=== PATIENT | male | born 1975 | race Caucasian/White ===

== ENCOUNTER 2022-01-29 07:50 | Emergency (ER) | payer OTHER, SELFPAY ==
[2022-01-29 08:14] VITALS: BP 126/79; PULSE 64; RESP 16; TEMP 36.4; O2SAT 98; BMI 27.6
[2022-01-29] MEDS: Tetracaine HCl/PF 0.5% Oph Sol 4 ML DROPS 1 DROP EYE-RIGHT (09:32)
[2022-01-29] MEDS: Erythromycin Base 0.5% Oph Oin 1 GM TUBE 1 CM EYE-RIGHT (09:32)
[2022-01-29] MEDS: Fluorescein Sodium STRIP 1 STRIP EYE-RIGHT (09:32)
--- NOTE | 2022-01-29 09:39 | ED_ITS ---
HPI - Eye Problem General Chief complaint: Eye Problems Stated complaint: Eye pain Time Seen by Provider: 01/29/22 09:07 Source: patient Mode of arrival: ambulatory Limitations: no limitations History of Present Illness HPI Narrative: 47-YEAR-OLD MALE previously healthy here with reports of right eye irritation and light sensitivity since Saturday evening. Patient tells me that he was working on a car on Saturday. He was working with a tool grinding damon brakes and felt something hit his eye. He did not have eye protection on. Since then patient has had some irritation and light sensitivity the right eye. He denies any vision changes, eye pain, discharge. Patient does not use any contacts or glasses. Related Data Previous Rx's Medication Instructions Recorded erythromycin 5 mg/gram (0.5 %) eye 0.5 inch OPHTHALMIC (EYE) BID 7 01/29/22 ointment Days #3.5 g Allergies Allergy/AdvReac Type Severity Reaction Status Date / Time codeine [CODEINE] Allergy Unknown UNKNOWN Verified 01/29/22 08:13 Review of Systems Review of Systems: Yes all other systems are reviewed and are negative Constitutional: Constitutional: Reports no additional constitutional complaints, Denies body ache(s), Denies chills, Denies fever(s), Denies headache(s) and Denies weakness Eyes: Eyes: Reports no additional eye complaints, Denies change in vision, Denies eye discharge, Reports irritation, Denies eye pain and Reports photophobia ENT: Reports system reviewed and no additional complaints, except as docum ented, Denies dizziness, Denies headache(s), Denies nasal congestion, Denies nasal discharge and Denies neck pain Cardiovascular: Cardiovascular: Reports no additional cardiovascular complaints, Denies chest pain, Denies leg edema and Denies dyspnea Respiratory: Respiratory: Reports no additional respiratory complaints, Denies cough and Denies dyspnea Gastrointestinal: Gastrointestinal: Reports no additional gastrointestinal complaints, Denies abdominal pain, Denies diarrhea, Denies nausea and Denies vomiting Genitourinary: Genitourinary: Denies urinary incontinence Musculoskeletal: Musculoskeletal: Reports no additional musculoskeletal complaints, Denies back pain, Denies arthralgias, Denies joint swelling, Denies neck pain, Denies numbness and Denies tingling Integumentary/Breasts: Skin/Breast: Reports system reviewed and no additional complaints, except as docu and Denies rash Neurologic: Reports system reviewed and no additional complaints, except as documented, Denies Abnormal speech present, Denies dizziness, Denies headache (s), Denies numbness, Denies tingling and Denies weakness PMFSH Past Medical History Attestation statement: The following information was validated with the patient. Source: old records reviewed and nursing notes reviewed Medical History No known health problems Social History Social History Advance Directives: No Advance Directives Information Provided: No Physical Exam Vital Signs: Vital Signs: Last Vital Signs Temp 97.6 F 01/29/22 08:14 Pulse 64 01/29/22 08:14 Resp 16 01/29/22 08:14 BP 126/79 01/29/22 08:14 Pulse Ox 98 01/29/22 08:14 BMI result Body Mass Index 27.6 Const: General: cooperative, healthy appearing, comfortable and no acute distress Orientation/consciousness: patient oriented x3 Limitations: no limitations HEENT: Head: Yes normal to inspection Ears: hearing grossly normal bilaterally General nose exam: Normal external nose present Face and sinus: Yes normal facial exam Mouth: Normal oral and palatal mucosa present Throat: Yes posterior oropharynx normal Eyes: General: appearance normal, both eyes and all related structures Visual Betts: normal visual betts by confrontation Alignment and Position: alignment normal Periorbital: periorbital findings normal Eyelids: Yes eyelids normal Conjunctivae: conjunctival abnormal (r conjunctiva erythema/irritation ) Sclerae: sclerae normal Corneas: corneas abnormal on the right fluorescein used, abrasion and foreign body metallic, with rust ring present and at clock position (2 o clock) and fluorescein used Pupils: Equal, round and reactive pupils present EOM: EOMs intact bilaterally Direct Ophthalmoscopy: normal light reflex and photophobia Neck: Neck: Yes normal visual inspection Chest: Chest palpation & inspection: normal inspection of the chest Resp: Effort & Inspection: normal respiratory effort Auscultation: clear to auscultation bilaterally Cardio: Rate: regular rate Rhythm: regular rhythm Peripheral pulses: Peripheral pulses 2+ throughout GI: Inspection: Yes normal to inspection Palpation (GI): Soft to palpation and nontender Auscultation: normal bowel sounds Back/Spine/Pelvis: Thoracic/Lumbar Spine: thoracic and lumbar spine normal to inspection Skin: General skin exam: no rashes or lesions noted Neuro: General: patient oriented x3, no focal motor deficits and normal sensation to monofilament Cranial nerves: Yes Equal, round and reactive pupils present Cognition (Neuro): normal cognition Speech: No Abnormal speech present Gait exam (Neuro): Normal gait present Motor exam (neuro): 5/5 motor strength present throughout Extrem: General: Yes normal to inspection Course Course Course Narrative: 47 yo male here with right eye irritation/photophobia since grinding damon brakes Saturday night w/o eye protection. Last tetanus unknown. Eye exam shows FB at 2 o clock position with rust ring. See procedure note for removal. There is residual rust ring. Tetanus will be updated. Erythromycin for home. Refer to opthmo for rust ring. Reviewed worrisome signs/symptoms with patient and when to seek additional care. Comfortable with discharge home. MDM - Eye Problem Differential Diagnosis Differential diagnosis: Likely corneal abrasion Medical Records Attestation: I reviewed the patient's medical records. Lab Data Attestation: I reviewed the patient's lab results. Procedures FB Removal Eye Location: eye (R) Topical anesthetic used: tetracaine Foreign body: metal Technique: cotton tip swab and needle Procedure performed under: direct visualization with magnification Post-procedure medication: ophthalmic antibiotic and topical anesthetic Patient tolerated procedure: well Complications: residual rust ring Discharge Plan Discharge Clinical Impression: Corneal abrasion, Acute foreign body of right cornea Patient Disposition: Home, Self-Care Instructions: Corneal Abrasion (DC), Eye Foreign Body (ED) Additional Instructions: USE THE OINTMENT PRESCRIBED COOL COMPRESSES NEEDED MOTRIN OR TYLENOL FOR PAIN FOLLOW-UP WITH THE EYE DOCTOR. HIS OFFICE OPENS AT 730AM TOMORROW Prescriptions: New erythromycin 5 mg/gram (0.5 %) ointment 0.5 inch ophthalmic (eye) BID 7 Days Qty: 3.5 0RF Referrals: Rafat Maya [Physician] - 5 days Stand Alone Forms: Work/School Release Interventions: ED Discharge Assessment Last Done: 01/29/22 10:09 Discharge Date/Time: 01/29/22 10:09 Print Language: Tongan
[2022-01-29] MEDS: Diphth,Pertus(ACell),Tet Adult 0.5 ML SYRINGE IM (10:04)
== END 2022-01-29 10:09 | disposition home or self-care (01) ==
LOC: HO.ED 09:44
PROVIDERS: Emergency Provider Emergency Medicine Emergency Medical Services; PCP Internal Medicine
DX: S05.01XA Injury of conjunctiva and corneal abrasion without foreign body, right eye, initial encounter (principal); W45.8XXA Other foreign body or object entering through skin, initial encounter; Y93.89 Activity, other specified; Y92.9 Unspecified place or not applicable; Y99.9 Unspecified external cause status
CPT/HCPCS: 65220; 90471; 90715; 99284

== ENCOUNTER 2024-01-25 15:01 | Emergency (ER) | payer OTHER, SELFPAY ==
[2024-01-25 15:32] VITALS: BP 144/71; PULSE 69; RESP 18; TEMP 36.6; O2SAT 94; BMI 24.5
--- NOTE | 2024-01-25 15:32 | ED.WOUNDLAC ---
HPI - Wound/Laceration General Chief Complaint: Wound/Laceration Stated Complaint: r hand laceration Time Seen by Provider: 01/25/24 16:42 Source: patient Mode of arrival: ambulatory Limitations: no limitations History of Present Illness HPI narrative: 49-year-old left-hand dominant male with no significant pmhx presents to the ED today for evaluation of laceration to hand that occurred just prior to arrival. He states that he was working on his car when a metal wire came down and slid against his right palm, causing a laceration. No metal was missing off of the wire and he does not believe there is any foreign body within the laceration itself. Reports immediately running inside to wash his hand out prior to coming to the ED. he is unsure if his tetanus is up-to-date. Not on anticoagulation. On arrival to ED, bleeding is controlled and laceration is clean. He denies any other complaints at present. Related Data Previous Rx's Medication Instructions Recorded erythromycin 5 mg/gram (0.5 %) eye 0.5 inch ophthalmic (eye) BID 7 01/29/22 ointment days #3.5 grams Allergies Allergy/AdvReac Type Severity Reaction Status Date / Time codeine [CODEINE] Allergy Unknown UNKNOWN Verified 01/29/22 08:13 Review of Systems Review of Systems: Constitutional: No fever, chills, fatigue, night sweats, weight changes ENT/Mouth: No ear pain, hearing loss, nasal congestion, sinus pain, rhinorrhea, sore throat Eyes: No eye pain, swelling, redness, vision changes, discharge Cardio: No chest pain, palpitations, TREVINO, orthopnea, peripheral edema Pulm: No SOB, cough, sputum, wheezing, dyspnea, hemoptysis GI: No nausea, vomiting, hematemesis, abdominal pain, diarrhea, constipation, hematochezia, melena : No irregular bleeding, dysuria, frequency, urgency, hesitancy, hematuria, flank pain, urinary flow changes, urinary incontinence or retention MSK: No back pain, neck pain, joint pain, myalgias Skin: No lesions, rashes, +laceration to right palm Neuro: No weakness, numbness, paresthesias, LOC, dizziness, headache Psych: No anxiety/panic, depression, SI/HI, AH/VH All other systems reviewed and are negative. [facility] Past Medical History Attestation statement: The following information was validated with the patient. Source: old records reviewed and nursing notes reviewed Medical History No known health problems Social History Social History Advance Directives: No Advance Directives Information Provided: No Physical Exam Vital Signs: Vital Signs: Last Vital Signs Temp 98 F 01/25/24 15:32 Pulse 69 01/25/24 15:32 Resp 18 01/25/24 15:32 BP 144/71 H 01/25/24 15:32 Pulse Ox 94 01/25/24 15:32 O2 Del Method Room Air 01/25/24 15:32 BMI result Body Mass Index 24.5 Hypertensive, vitals otherwise WNL Const: General: cooperative, healthy appearing, comfortable and no acute distress Orientation/consciousness: patient oriented x3 Limitations: no limitations HEENT: Head: Yes normocephalic and Yes atraumatic Eyes: General: appearance normal, both eyes and all related structures Neck: Neck: Yes normal visual inspection Resp: Effort & Inspection: normal respiratory effort Cardio: Rate: regular rate Rhythm: regular rhythm Skin: Other: + 2 cm superficial linear laceration noted to the ulnar aspect of right palm. Not actively bleeding. No involvement of deeper structures. No foreign body. Tender to palpation. Family Nurse strength intact. [id number] opposition intact. 2+ radial and ulnar pulses. Neuro: Other: Strength 5/5 intact throughout.?Sensation intact to light touch.? Neurovascular intact distally.? General: patient oriented x3 and gait normal Extrem: General: Yes capillary refill normal and Yes normal exam except as noted Course Course Course Narrative: This is a rapid medical exam: Additional HPI, ROS, PE not included below will be deferred to primary provider. Patient is a 49-year-old left-hand dominant male presenting to the ED with complaint of laceration to right hand. States he was working on a car and cut it on metal. Believes Tdap is within 5 years. 1cm laceration to lateral/palmar aspect over 5th metacarpal. Plan: will need sutures Reevaluation(s) Reevaluation #1: 5330-- patient presents with small laceration to right thumb. There is no obvious foreign body. Patient is adamant that there is no metal or other foreign body within the laceration. He was offered x-ray which he declines. Laceration was extensively cleaned and closed with 2 4-0 nylon sutures after lidocaine administration. He tolerated this well. I advised him to return to the ED in 7-10 days for removal. I educated him on signs of infection and when to return to the ED. bacitracin was placed and wound was dressed. Advised him to apply either bacitracin or Neosporin to the area for the next few days to prevent infection. I do not believe as though oral antibiotic is warranted at this time Patient has remained stable throughout ED visit today. Discussed worrisome signs and symptoms and when to return to the ED. All questions answered at this time. Patient is agreeable with disposition and stable for discharge. Medications Administered Discontinued Medications Generic Name Dose Route Start Last Admin Trade Name Freq PRN Reason Stop Dose Admin Lidocaine HCl 5 ml 01/25/24 17:13 01/25/24 17:40 Lidocaine Hcl 1 % Mpf 5 Ml Vial INFILTRATI 01/25/24 17:14 5 ml ONCE ONE Administration Medical Decision Making Medical Decision Making MDM Narrative: 49-year-old left-hand dominant male with no significant pmhx presents to the ED today for evaluation of laceration to hand that occurred just prior to arrival. On exam there is a 2 cm superficial linear laceration noted to the ulnar aspect of right palm. Not actively bleeding. No involvement of deeper structures. No foreign body. Tender to palpation. Family Nurse strength intact. [id number]-[id number] opposition intact. 2+ radial and ulnar pulses. Differential diagnosis include laceration, abrasion, cellulitis, skin foreign body Plan for suture repair Differential Diagnosis Differential Diagnoses: The differential diagnosis associated with the presentation includes As above Admission/Observation Not indicated Prescription Management I considered prescription management with: Pain Medication and Antibiotic Social Determinants Patient?s care significantly limited by Social Determinants of Health including: Other Social Determinant of Health Procedures Laceration Laceration 1: Site: hand Side (If applicable): right Size (cm): 2 Description: linear and clean Local Anesthetic: lidocaine 1% Amount of anesthesia used (mL): 5 Pre-repair: wound explored, irrigated extensively and deep structures intact Skin layer closed with: nylon Size (cm): 4-0 Number of sutures: 2 Technique: simple, interrupted Discharge Plan Discharge Clinical Impression: Laceration of hand, right Patient Disposition: Home, Self-Care Instructions: Laceration (DC) Additional Instructions: You were seen in the ED for laceration to your right hand. Your laceration was closed with 2 sutures. Please return in 7-10 days to have these removed. Your tetanus was updated today. Please apply either bacitracin or Neosporin to the area to further prevent infection. We discussed signs of infection. Please return to the ED with new or worsening symptoms. The case of an emergency call 911. You have also been provided with a work connections information as this was a work-related injury: [phone] Prescriptions: No Action erythromycin 5 mg/gram (0.5 %) ointment 0.5 inch ophthalmic (eye) BID 7 Days Qty: 3.5 0RF Referrals: [facility] [Outside] Stand Alone Forms: Work/School Release Interventions: ED Discharge Assessment Last Done: 01/25/24 18:17 Discharge Date/Time: 01/25/24 18:18
[2024-01-25] MEDS: Lidocaine HCl 1 % MPF 5 ML VIAL INFILTRATI (17:40)
[2024-01-25] MEDS: Diphth,Pertus(ACell),Tet Adult 0.5 ML SYRINGE IM (18:15)
[2024-01-25 18:17] VITALS: BP 158/88; PULSE 55; RESP 16; TEMP 36.4
== END 2024-01-25 18:18 | disposition home or self-care (01) ==
PROVIDERS: Emergency Provider Internal Medicine; PCP Internal Medicine
DX: S61.411A Laceration without foreign body of right hand, initial encounter (principal); W26.8XXA Contact with other sharp object(s), not elsewhere classified, initial encounter; Y92.810 Car as the place of occurrence of the external cause; Y92.89 Other specified places as the place of occurrence of the external cause; Y99.9 Unspecified external cause status; Z23 Encounter for immunization
CPT/HCPCS: 90471; 90715; 99282; 99284